=== PATIENT | male | born 1945 | race Caucasian/White ===

== ENCOUNTER → 2016-06-10 | Outpatient (CLI) | payer OTHER ==
--- NOTE | 2016-06-10 16:28 | DX ---
SI joint series 3 views 1229 hours. History: Pain (M 54.9, 724.5) Findings: The SI joints are normal in appearance without sclerosis or erosion. No fractures are seen about the sacrum. There are no lytic or sclerotic osseous lesions. Degenerative disk space narrowing is noted at the lumbosacral junction. The hip joints appear to be well-maintained. Impression: 1. No significant abnormality seen about the SI joints. 2. Degenerative disk disease L5-S1.
--- NOTE | 2016-06-10 16:58 | DX ---
Lumbar spine AP and lateral 1229 hours. History: Low back pain. Findings: Vertebral body heights are well-maintained. There are no subluxations. There is moderate in tervertebral disk space narrowing with mild endplate sclerosis and osteophytes at L4-L5 and moderate to marked at L5-S1. The remainder of the disk spaces appear to be normal. Mild right-sided facet hype rtrophy suspected at L4-L5. Moderate atherosclerotic calcification is present of the distal aorta wit hout aneurysm. There are no lytic or sclerotic osseous lesions. Impression: 1. Degenerative disk disease at L4-L5 and L5-S1. 2. Right-sided facet hypertrophy suspected at L4-L5.
== END ==
LOC: CIMAGING 11:59
PROVIDERS: ATTEND Family Medicine
DX: M51.36 Other intervertebral disc degeneration, lumbar region (principal); M51.37 Other intervertebral disc degeneration, lumbosacral region; M89.38 Hypertrophy of bone, other site
CPT/HCPCS: 72100-PO; 72202-PO

== ENCOUNTER → 2016-12-12 | Outpatient (CLI) | payer OTHER | LOC: FIMAGING 14:01 | PROVIDERS: ATTEND Family Medicine | DX: M47.26 Other spondylosis with radiculopathy, lumbar region (principal); M47.27 Other spondylosis with radiculopathy, lumbosacral region; M51.36 Other intervertebral disc degeneration, lumbar region; M51.26 Other intervertebral disc displacement, lumbar region ==

== ENCOUNTER → 2017-04-15 | Outpatient (CLI) | payer OTHER ==
[~2017-04-15] MED LIST: GADOBUTROL 10 ML VIAL IVP ONE
== END ==
LOC: FIMAGING 11:48
PROVIDERS: ATTEND Physical Medicine & Rehabilitation
DX: M50.31 Other cervical disc degeneration, high cervical region (principal); M48.02 Spinal stenosis, cervical region; M46.92 Unspecified inflammatory spondylopathy, cervical region
CPT/HCPCS: 70553; 72141; A9585